=== PATIENT | female | born 1990 | race Caucasian/White ===

== ENCOUNTER 2024-07-20 20:05 | Emergency (ER) | payer BC ==
[2024-07-20] MEDS ORDERED: Lactulose 20 GM (30 mL) UDCUP ONE (20:59)
== END 2024-07-20 22:02 | disposition home or self-care (01) ==
LOC: CSHERS 20:05
DX: O99.891 Other specified diseases and conditions complicating pregnancy (principal); K59.00 Constipation, unspecified; Z3A.30 30 weeks gestation of pregnancy; F90.9 Attention-deficit hyperactivity disorder, unspecified type; Z79.899 Other long term (current) drug therapy
CPT/HCPCS: 99283

== ENCOUNTER 2024-08-27 19:00 | Day surgery (SDC) | payer BC ==
[2024-08-27 19:24] VITALS: BMI 39.2
[2024-08-27 20:48] LABS: #Basophils 0.03 10x3/uL (0.0-0.2); #Eosinophils 0.05 10x3/uL (0.0-0.5); #Monocytes 0.65 10x3/uL (0.0-1.1); #Neutrophils 8.82 10x3/uL (1.5-8.4); %Basophils 0.3 % (0.0-2.0); %Eosinophils 0.4 % (0.0-6.0); %Lymphocytes 18.6 % (18.0-47.0); %Monocytes 5.5 % (0.0-10.0); %Neutrophils 74.7 % (40.0-75.0); Hematocrit 34.5 % (34.9-44.5); Hemoglobin 11.4 g/dL (12.0-15.5); Mean Corpuscular Volume 75.7 fL (81.6-98.3); Mean Platelet Volume 9.1 fL (7.4-10.4); Platelet Count 278 10x3/uL (150-450); RBC Distribution Width 13.4 % (11.5-14.5); Red Blood Cell (RBC) Count 4.56 10x6/uL (3.90-5.03); White Blood Cell (WBC) Count 11.8 10x3/uL (3.5-10.5)
[2024-08-27 20:58] LABS: Creatinine, Urine 101.86 mg/dL (47-110)
[2024-08-27 21:01] LABS: ALT (SGPT) 12 U/L (8-55); AST (SGOT) 15 U/L (5-34); Albumin 2.2 g/dL (3.5-5.0); Alkaline Phosphatase 103 U/L (40-110); Anion Gap 13 mmol/L (10-20); BUN (Urea Nitrogen) 8 mg/dL (7.0-18.7); Bilirubin, Total Less than 0.2 mg/dL (0.2-1.2); Calc. Creatinine Clearance 206 mL/min (70-130); Calcium 8.4 mg/dL (7.8-10.44); Carbon Dioxide 17 mmol/L (22-29); Chloride 111 mmol/L (98-107); Estimated GFR 118; Globulin 3.1 g/dL (2.4-3.5); Glucose 106 mg/dL (70-105); Protein, Total 5.3 g/dL (6.0-8.3); Sodium 137 mmol/L (136-145)
== END 2024-08-27 21:45 | disposition home or self-care (01) ==
LOC: CSHLD/OP 19:00
PROVIDERS: ATTEND Student in an Organized Health Care Education/Training Program
DX: O13.3 Gestational [pregnancy-induced] hypertension without significant proteinuria, third trimester (principal); O47.03 False labor before 37 completed weeks of gestation, third trimester; Z79.899 Other long term (current) drug therapy; Z79.82 Long term (current) use of aspirin; Z3A.35 35 weeks gestation of pregnancy
CPT/HCPCS: 36415; 80053; 82570; 84156; 85025

== ENCOUNTER 2024-09-06 18:06 | Inpatient (IN) | payer BC ==
[~2024-09-06 18:06] MED LIST: Bupivacaine 0.25% HCL 30 ML VIAL ONE; Lidocaine 2% MPF 10 ML AMP (For Epidural Use) ONE; ePHEDrine Sulfate 50 MG/10 ML VIAL ONE
[2024-09-06 19:22] VITALS: BMI 39.7
[2024-09-06] MEDS ORDERED: Misoprostol 200 MCG TAB PR PRN (19:32)
[2024-09-06] MEDS ORDERED: Methylergonovine 0.2 MG/ML VIAL IM PRN (19:32)
[2024-09-06] MEDS ORDERED: Diphenoxylate HCl/Atropine Tablet PO PRN (19:32)
[2024-09-06] MEDS ORDERED: Acetaminophen 500 MG TAB PO PRN (19:32)
[2024-09-06] MEDS ORDERED: Carboprost 250 MCG/ML AMP IM PRN (19:32)
[2024-09-06] MEDS ORDERED: Promethazine HCl 25 MG/ML VIAL IM PRN (19:32)
[2024-09-06] MEDS ORDERED: Ibuprofen 800 MG TAB PO PRN (19:32)
[2024-09-06] MEDS ORDERED: HYDROcodone/Acetaminophen 5/325 mg Tablet PO PRN (19:32)
[2024-09-06] MEDS ORDERED: Lidocaine 1% (PF) 30 ML VIAL SC PRN (19:32)
[2024-09-06] MEDS ORDERED: Zolpidem Tartrate 5 MG TAB PO PRN (19:32)
[2024-09-06] MEDS ORDERED: Oxytocin 30 units/NS 500 ML 500 ML IV SCH ×2 (19:45)
[2024-09-06 19:50] LABS: Hematocrit 35.3 % (34.9-44.5); Hemoglobin 11.8 g/dL (12.0-15.5); Mean Corpuscular HGB CONC 33.4 g/dL (32.0-36.0); Mean Corpuscular Hemoglobin 25.1 pg (27.0-33.0); Mean Corpuscular Volume 75.1 fL (81.6-98.3); Mean Platelet Volume 9.7 fL (7.4-10.4); Platelet Count 296 10x3/uL (150-450); RBC Distribution Width 14.6 % (11.5-14.5)
[2024-09-06 20:10] LABS: ALT (SGPT) 10 U/L (8-55); AST (SGOT) 14 U/L (5-34); Albumin 2.5 g/dL (3.5-5.0); Alkaline Phosphatase 133 U/L (40-110); Anion Gap 13 mmol/L (10-20); BUN (Urea Nitrogen) 10 mg/dL (7.0-18.7); Bilirubin, Total Less than 0.2 mg/dL (0.2-1.2); Calc. Creatinine Clearance 181 mL/min (70-130); Calcium 8.8 mg/dL (7.8-10.44); Carbon Dioxide 17 mmol/L (22-29); Chloride 111 mmol/L (98-107); Estimated GFR 107; Globulin 3.5 g/dL (2.4-3.5); Glucose 95 mg/dL (70-105); Potassium 3.9 mmol/L (3.5-5.1); Sodium 137 mmol/L (136-145)
[2024-09-06 22:09] LABS: Syphilis Antibody Nonreactive (Nonreactive); Syphilis Antibody Index 0.05 S/CO (<1.00 Non-Reactive)
[2024-09-06 22:10] LABS: HBsAg Index 0.24 S/CO (0-0.99); Hep B Surf Ag - L&D Non-Reactive S/CO (NonReactive)
[2024-09-07] MEDS: Misoprostol 100 MCG TAB VAG SCH (07:37)
[2024-09-07] MEDS: Lactated Ringer's 1,000 ML IV SCH (07:37)
[2024-09-07] MEDS: hydrOXYzine Pamoate 25 mg Capsule PO PRN (09:25)
[2024-09-07] MEDS: fentaNYL 50 mcg/mL 1 mL Vial SLOW IVP PRN (10:16)
[2024-09-07] MEDS: Promethazine HCl 25 MG, Admixture Fee 1 EACH in Sodium Chloride 0.9% 50 ML IVPB PRN (10:35)
[2024-09-07] MEDS ORDERED: Moisturizing Cream (Eucerin) 113 GM JAR TOP PRN (13:07)
[2024-09-07] MEDS ORDERED: Ondansetron PF 4 MG/2 ML Vial IVP PRN (13:07)
[2024-09-07] MEDS ORDERED: Promethazine HCl 25 MG/ML VIAL IM PRN (13:07)
[2024-09-07] MEDS ORDERED: ePHEDrine Sulfate 50 MG/10 ML VIAL SLOW IVP PRN (13:07)
[2024-09-07] MEDS ORDERED: Naloxone HCl 0.4 mg/ml Vial IVP PRN ×2 (13:07)
[2024-09-07] MEDS ORDERED: Lactated Ringer's 500 ML IV PRN (13:07)
[2024-09-07] MEDS ORDERED: Communication Order-Pharmacy FS SCH (13:15)
[2024-09-07] MEDS: fentaNYL 2 mcg/Ropivacaine 0.2% Epidural 100 ML CADD EPIDURAL SCH (13:42)
[2024-09-07] MEDS: hydrALAZINE 20 MG/ML VIAL SLOW IVP PRN (17:03)
[2024-09-07] MEDS: fentaNYL/Ropivacaine Epidural 100 ML ONE (17:30)
[2024-09-07] MEDS: diphenhydrAMINE 50 MG/ML VIAL IVP PRN (19:16)
[2024-09-08] MEDS: Ondansetron PF 4 MG/2 ML Vial IVP PRN (08:42)
[2024-09-08] MEDS: Acetaminophen 325 MG TAB PO PRN (13:05)
[2024-09-08] MEDS ORDERED: Famotidine/PF 20 mg/2ml Vial SLOW IVP PRN (19:33)
[2024-09-08] MEDS ORDERED: Bicitra 30 ML UDCUP PO PRN (19:33)
[2024-09-08] MEDS ORDERED: Azithromycin 500 MG in Sodium Chloride 0.9% 250 ML 250 ML IVPB SCH (19:45)
[2024-09-08] MEDS ORDERED: CEFAZOLIN 2 GM in Sodium Chloride 0.9% 100 ML IVPB SCH (19:45)
[2024-09-08] MEDS ORDERED: Naloxone HCl 0.4 mg/ml Vial IV PRN (20:12)
[2024-09-08] MEDS ORDERED: Meperidine HCl/PF 25 MG (1 mL) VIAL SLOW IVP PRN (20:12)
[2024-09-08] MEDS ORDERED: Naloxone HCl 0.4 mg/ml Vial IVP PRN ×2 (20:12)
[2024-09-08] MEDS ORDERED: diphenhydrAMINE 50 MG/ML VIAL IVP PRN (20:12)
[2024-09-08] MEDS ORDERED: Ondansetron PF 4 MG/2 ML Vial IVP PRN ×2 (20:12)
[2024-09-08] MEDS ORDERED: Communication Order-Pharmacy FS SCH (20:15)
[2024-09-08] MEDS ORDERED: busPIRone HCl 5 MG TAB PO SCH (21:00)
[2024-09-08] MEDS: Ketorolac Tromethamine 30 MG (1 mL) VIAL IVP SCH (22:10)
[2024-09-08] MEDS: Promethazine HCl 25 MG/ML VIAL IM PRN (23:49)
[2024-09-08] MEDS: fentaNYL 50 mcg/mL 1 mL Vial SLOW IVP PRN (23:50)
[2024-09-09] MEDS ORDERED: hydrALAZINE 20 MG/ML VIAL SLOW IVP PRN (01:14)
[2024-09-09] MEDS ORDERED: diphenhydrAMINE 25 MG CAP PO PRN (01:14)
[2024-09-09] MEDS ORDERED: Lanolin Ointment 7 GM TUBE TOP PRN (01:14)
[2024-09-09] MEDS ORDERED: Bisacodyl 10 MG SUPP PR PRN (01:14)
[2024-09-09] MEDS: fentaNYL 50 mcg/mL 1 mL Vial ONE (01:31)
[2024-09-09] MEDS: Phytonadione Neonatal 1 MG/0.5 ML AMP ONE (01:31)
[2024-09-09] MEDS: Ondansetron PF 4 MG/2 ML Vial ONE (01:32)
[2024-09-09] MEDS: ePHEDrine Sulfate 50 MG/10 ML VIAL ONE (01:32)
[2024-09-09] MEDS: Erythromycin Base 0.5% Oint 1 GM TUBE ONE (01:32)
[2024-09-09] MEDS: Midazolam HCl 2 mg/2 ml Vial ONE (01:32)
[2024-09-09] MEDS: PHENYLEPHRINE-NS 100 MCG/ML 10 ML SYRINGE ONE ×2 (01:32)
[2024-09-09] MEDS: Lidocaine 2% MPF 10 ML AMP (For Epidural Use) ONE (01:32)
[2024-09-09] MEDS: Oxytocin 10 UNITS/ML VIAL ONE (01:32)
[2024-09-09] MEDS: DULoxetine 30 MG CAP PO SCH ×2 (01:33→08:12)
[2024-09-09] MEDS: Famotidine/PF 20 mg/2ml Vial ONE (01:33)
[2024-09-09] MEDS: Azithromycin 500 MG VIAL ONE (01:33)
[2024-09-09] MEDS: CEFAZOLIN 2 GM VIAL ONE (01:33)
[2024-09-09] MEDS: Acetaminophen 325 MG TAB PO PRN (02:37)
[2024-09-09] MEDS: Simethicone Chewable 80 MG TAB PO PRN (02:37)
[2024-09-09] MEDS: Hepatitis B Vaccine 10 MCG/0.5 ML SYR ONE (03:57)
[2024-09-09] MEDS: Dexmedetomidine 200 MCG/2 ML VIAL ONE (03:57)
[2024-09-09] MEDS: fentaNYL 50 mcg/mL 1 mL Vial SLOW IVP SCH (03:59)
[2024-09-09] MEDS: Ketorolac Tromethamine 30 MG (1 mL) VIAL IVP PRN (04:46)
[2024-09-09] MEDS: hydrOXYzine 10 MG/5 ML SYRUP UDCUP PO PRN (04:52)
[2024-09-09 05:28] LABS: Hematocrit 28.2 % (34.9-44.5); Hemoglobin 9.4 g/dL (12.0-15.5); Mean Corpuscular HGB CONC 33.3 g/dL (32.0-36.0); Mean Corpuscular Hemoglobin 25.1 pg (27.0-33.0); Mean Corpuscular Volume 75.2 fL (81.6-98.3); Mean Platelet Volume 9.2 fL (7.4-10.4); Platelet Count 203 10x3/uL (150-450); RBC Distribution Width 14.9 % (11.5-14.5); Red Blood Cell (RBC) Count 3.75 10x6/uL (3.90-5.03); White Blood Cell (WBC) Count 11.76 10x3/uL (3.5-10.5)
[2024-09-09] MEDS: HYDROcodone/Acetaminophen 5/325 mg Tablet PO PRN (08:12)
[2024-09-09] MEDS: Docusate 100 MG CAP PO SCH (08:12)
[2024-09-09] MEDS: busPIRone HCl 5 MG TAB PO SCH (08:17)
[2024-09-09] MEDS: Ondansetron PF 4 MG/2 ML Vial IVP PRN (08:21)
[2024-09-09] MEDS ORDERED: DULoxetine 30 MG CAP PO SCH (09:00)
[2024-09-09] MEDS ORDERED: DULoxetine 60 MG CAP PO SCH (09:00)
[2024-09-09] MEDS ORDERED: Ferrous Sulfate 325 MG TAB PO SCH (09:00)
[2024-09-09] MEDS ORDERED: Prenatal Vitamin 1 TAB PO SCH (09:00)
[2024-09-09] MEDS: Boostrix 0.5 ML (Tdap) VIAL (>/=7 yrs of age) IM ONE (11:48)
[2024-09-09] MEDS: Ibuprofen 800 MG TAB PO SCH (22:23)
[2024-09-09] MEDS: hydrOXYzine 25 MG TAB PO PRN (22:46)
[2024-09-10] MEDS ORDERED: Ibuprofen 800 MG TAB PO SCH (02:00)
[2024-09-10] MEDS: Ibuprofen 800 MG TAB PO SCH (05:42)
[2024-09-10] MEDS: HYDROcodone/Acetaminophen 5/325 mg Tablet PO PRN (08:24)
[2024-09-10] MEDS: Labetalol HCl 200 MG TAB PO SCH (09:30)
[2024-09-10] MEDS: Moisturizing Cream (Eucerin) 113 GM JAR TOP PRN (09:30)
[2024-09-10] MEDS: Zolpidem Tartrate 5 MG TAB PO PRN (21:27)
[2024-09-11] MEDS: DULoxetine 30 MG CAP PO SCH (21:41)
[2024-09-12 07:56] VITALS: BP 138/71; TEMP 98.1
== END 2024-09-12 13:10 | disposition home or self-care (01) | DRG 788 ==
LOC: CSHLD 18:06 → CSHPP 09-09 00:35
PROVIDERS: ADMIT Student in an Organized Health Care Education/Training Program; ATTEND Student in an Organized Health Care Education/Training Program
PROC: 0U7C7ZZ Dilation of Cervix, Via Natural or Artificial Opening (ICD-10-PCS; 2024-09-07)
PROC: 10D00Z1 Extraction of Products of Conception, Low, Open Approach (ICD-10-PCS; principal; 2024-09-08)
PROC: 10907ZC Drainage of Amniotic Fluid, Therapeutic from Products of Conception, Via Natural or Artificial Opening (ICD-10-PCS; 2024-09-08)
DX: O14.04 Mild to moderate pre-eclampsia, complicating childbirth (principal); O76 Abnormality in fetal heart rate and rhythm complicating labor and delivery; O99.344 Other mental disorders complicating childbirth; F41.9 Anxiety disorder, unspecified; F90.9 Attention-deficit hyperactivity disorder, unspecified type; Z3A.37 37 weeks gestation of pregnancy; Z37.0 Single live birth; Z79.899 Other long term (current) drug therapy; Z79.82 Long term (current) use of aspirin; O32.4XX0 Maternal care for high head at term, not applicable or unspecified
CPT/HCPCS: 36415; 51702; 59200; 80053; 85027; 86780; 86850; 86900; 86901; 87340; J0360; J0665; J1200; J1885; J2250; J2405; J2550; J2590; J3010; J3490; J7120; Q0177